=== PATIENT | female | born 1960 | race Caucasian/White ===

== ENCOUNTER → 2020-03-09 | Outpatient (CLI) | payer OTHER | LOC: LAB 03-02 07:59 | PROVIDERS: ATTEND Anesthesiology | DX: Z01.812 Encounter for preprocedural laboratory examination (principal); Z20.822 Contact with and (suspected) exposure to COVID-19 ==

== ENCOUNTER → 2020-08-31 | Outpatient (CLI) | payer OTHER ==
[~2020-08-31] MED LIST: AMITRIPTYLINE H25 M2 PO; CALCIUM CITRAT1 EAC7 PO; CAMBIA50 MG PO; DULCOLAX5 MG PO; METOCLOPRAMIDE 55 M1 PO; OMEPRAZOLE40 MG PO; ONDANSETRON HCL4 M3 PO; ROXICODONE15 MG PO; SUPER B COMPLE1 EAC2 PO; SYMBICORT160 MCG/4. INH; TIZANIDINE HCL4 M1 PO; TOPAMAX 100 MG100 MG PO; TRAZODONE HCL50 MG PO; VITAMIN C1000 MG PO; VITAMIN D310 MC1 PO; WELLBUTRIN SR150 MG PO
[2020-08-31 09:23] LABS: HEMATOCRIT 34.5 % (37.0-47.0); HEMOGLOBIN 11.7 gm/dL (12.0-15.0); MCH 33.8 pg (26.0-34.0); MCV 99.4 fL (80.0-100.0); RBC 3.47 mil/uL (4.20-5.00); RDW 14.3 % (10.5-14.5); WBC 8.7 thou/uL (4.0-11.0)
[2020-08-31 09:46] LABS: ALBUMIN 3.1 g/dL (3.4-5.0); CALCIUM 8.4 mg/dL (8.5-10.1); CREATININE 1.4 mg/dL (0.6-1.0); POTASSIUM 3.8 mmol/L (3.5-5.1); TOTAL BILIRUBIN 0.2 mg/dL (0.2-1.0); TOTAL PROTEIN 6.5 g/dL (6.4-8.2)
== END ==
LOC: PAC 08:52
PROVIDERS: ATTEND Surgery
DX: Z01.812 Encounter for preprocedural laboratory examination (principal); K43.9 Ventral hernia without obstruction or gangrene

== ENCOUNTER 2020-09-06 08:24 | Observation (INO) | payer OTHER ==
[~2020-09-06] VITALS: Ht 165.1 cm; Wt 103.4 kg
[2020-09-06] VITALS (7 sets, daily range): BP systolic 113–183; BP diastolic 67–98
--- NOTE | ~2020-09-06 | O ---
[facility] [place] [address] OPERATIVE REPORT Name: AWILDA GOLDBERG Room #: REG [facility] [place] M..#: [id number] Admission: 09/06/20 Attend Phys: Hola Rodriges MD Discharge: Date of : 62 Report #: [id number] THIS REPORT FOR: cc: Marshal Hein MD, Bryan W. MD Joseph, Sigi P. MD ~ cc: Dr. Marshal Hein DATE OF SERVICE: 09/06/2020 PREOPERATIVE DIAGNOSIS: Large ventral hernia. POSTOPERATIVE DIAGNOSIS: Large ventral hernia. OPERATIVE PROCEDURE DONE: 1. Laparoscopic extensive lysis of adhesions for about 60 minutes. 2. Laparoscopic repair of large ventral hernia with a Ventralight mesh, 15 x 25 cm. OPERATING SURGEON: Hola Rodriges MD NYLON OPERATOR: Boubacar. INDICATION FOR PROCEDURE: The patient is a 59-year-old female who presented with complaints of large ventral hernia that is partly reducible; however, she has been having chronic pain with this for the past few weeks and wished to have this repaired. The patient was advised laparoscopic repair of the same. The patient showed understanding and agreed to proceed. PROCEDURE IN DETAIL: After explaining to the patient in detail and informed consent was obtained. The patient was identified in the preoperative holding area, the patient was transferred to the operating room and was placed in supine position. Sequential compressive devices were placed for DVT prophylaxis. Preoperative antibiotics were given. After induction of anesthesia, the abdomen was prepped and draped in a sterile fashion. Through a left upper quadrant 1 cm incision and using Optiview technique, peritoneal cavity was entered and pneumoperitoneum was created. Thereafter, under direct vision, another 15 mm trocar was placed in the left flank and another 5 mm trocar was placed in the left lower quadrant region. On initial inspection, the patient was noted to have a moderate to large sized ventral hernia with adhesions containing omentum, transverse colon and small bowel within the hernia. I started to take down the adhesions initially using EnSeal. I continued to take down the small bowel that was within the hernia and most of it that was outside the hernia just adjacent to it that had to be taken down for subsequent repair. This was very tedious as a part of the small bowel was scarred on to the anterior abdominal wall. Continued lysis of adhesions using sharp and blunt dissection for about [address] [address] OPERATIVE REPORT Name: AWILDA GOLDBERG Room #: REG [facility] [place] M..#: [id number] Admission: 09/06/20 Attend Phys: Hola Rodriges MD Discharge: Date of : 62 Report #: [id number] minutes. The scarred area of the small bowel on the anterior abdominal wall I took down along with the small part of the fascia in that region to avoid any bowel injury. Once all the small bowel was taken down circumferentially, I then measured the hernial defect to be about 12 x 8 cm. Therefore, I chose a 25 x 15 cm Ventralight mesh and this was introduced into the abdominal cavity. The mesh was then anchored anteriorly and mesh was tacked circumferentially at 1 cm intervals using SecureStrap. I placed another inner layer of SecureStrap to hold the mesh in place and in addition I also placed 5 Mesick-Oliver sutures, 4 in the corners and 1 on the left side of the mesh repair. The mesh appeared to be in place without any tension. Absolute hemostasis was ensured. The 15 mm port site incision was closed with 0 Vicryl for the fascia. Skin was closed with 4-0 Monocryl for the incisions. Dermabond was applied. The patient was stable at the end of the procedure, the patient was awoken from anesthesia and was transferred to the recovery room in stable condition. Estimated blood loss was approximately 10 mL. CONDITION: The patient is stable. Fluids given per anesthesia notes. SPECIMEN SENT: None. COMPLICATIONS: None. By: [id number] Hola Rodriges MD /nt
--- NOTE | 2020-09-06 19:28 | NUR ---
Received from post op late in the pm. Pain is managed with medications, partial relief is noted. Pt is observation status, runs Sr on the tele. Endorsed to the night nurse.
--- NOTE | 2020-09-06 20:06 | NUR ---
WHEN GREETING PT, SON (MERY) REPORTED THAT PT TOOK OXYCODONE THAT SHE BROUGHT FROM HOME. PT IS NOT HAPPY ABOUT GIVING AWAY HER OXY PILLS. SON UNSURE IF THERE ARE MORE PILLS IN HER BAG.
--- NOTE | 2020-09-06 22:45 | NUR ---
NOTIFIED BY NURSING STAFF THAT PATIENT HAD TAKEN OWN NARCOTICS FROM HOME. ASSESSED PATIENT AND ASKED REGARDING TAKING HER OWN MEDS. PT DENIED INITIALLY BUT DID ADMIT TO TAKING "HALF OF ONE." INFORMED PT OF DANGERS OF SELF-MEDICATING AND ASKED HOW WE COULD HELP BETTER CONTROL HER PAIN. PT AGGRAVATED, NOT WANTING TO ANSWER QUESTIONS. INFORMED PT MYSELF AND TWO SECURITY GUARDS WOULD DO A SWEEP OF HER ROOM TO ENSURE NO ADDITIONAL MEDS WERE IN HER POSSESSION. PT AGAIN VERY AGGRAVATED AND STATING SHE WANTED TO LEAVE AMA. ROOM SEARCHED WITH THIS BRAND MARKETING MANAGER, TWO SECURITY GUARDS, AND RN PRESENT. PT'S BELONGINGS SEARCHED IN FRONT OF PATIENT ON BEDSIDE TABLE. CONFISCATED EPIPEN, NICOTINE PATCHES, AND TWO PAIRS OF SCISSORS. ALL OTHER BELONGINGS RETURNED THEY WERE FOUND.
[2020-09-07 01:00] VITALS: BP 123/63
--- NOTE | 2020-09-07 03:08 | NUR ---
ASSUMED PT CARE AT 1915 PT IS ALERT AND ORIENTED X4. PT HAS 4 LAP SITES WHICH ARE DRY WITH NO SIGN OF REDNESS TO THEM. PT C/O OF NAUSEA AND PAIN WHICH WAS MANAGED WITH PRN MEDS. PT IS NONCOMPLIANT AND REQUESTED FOR TELE TO BE TAKEN OFF. PT REFUSED TO GO FOR WALK. CABRERA IN PLACE. FALL PRECAUTION IN PLACE WITH CALL LIGHT WITHIN REACH. WILL CONTINUE TO MONITOR.
[2020-09-07 07:33] VITALS: BP 156/92
[2020-09-07 10:04] LABS: HEMATOCRIT 35.4 % (37.0-47.0); HEMOGLOBIN 11.9 gm/dL (12.0-15.0); MCH 33.7 pg (26.0-34.0); MCHC 33.7 g/dL (28.0-37.0); MCV 99.9 fL (80.0-100.0); RBC 3.54 mil/uL (4.20-5.00); RDW 14.5 % (10.5-14.5); WBC 14.5 thou/uL (4.0-11.0)
[2020-09-07 10:21] LABS: ALBUMIN 2.8 g/dL (3.4-5.0); CALCIUM 8.6 mg/dL (8.5-10.1); CREATININE 1.2 mg/dL (0.6-1.0); PHOSPHORUS 2.6 mg/dL (2.6-4.7); POTASSIUM 3.9 mmol/L (3.5-5.1)
--- NOTE | 2020-09-07 12:15 | NUR ---
PT ADMITTED RELATED TO LAP VENTRAL HERNIA REPAIR. CM REVIEWED CHART AND SPOKE WITH CARE TEAM. CM MET WITH PT AT BEDSIDE THIS DAY. PT APPEARED TO BE A&O X4. CM ROLE INTRODUCED. PT INDICATED SHE RESIDES IN A HOUSE WITH HER SPOUSE, BROTHR IN LAW, AND SISTER IN LAW. PT INDICATED THAT SHE USED A 4WW AND A CANE TO ASSIST WITH AMBULATION FITNESS SERVICES MANAGER. PT INDICATED SHE HAD BEEN INDEPENENT WITH AND ADLS FITNESS SERVICES MANAGER. PT INDIATED SHE HAD [facility] IN THE LAST YEAR. PT INDICATED SHE IS ON DISABILITY AND THAT SHE DOESN'T QUALIFY FOR MEDICAID HER SPOUSE WORKS. PT INDICATED SHE PLANS TO RETURN HOME ONCE MEDICALLY STABLE AND THAT HE SPOUSE WILL PROVIDE TRANSPORT. PT HAD CARE COMPLAINTS AND CM NOTIFIED CANCELING MACHINE OPERATOR WHO FOLLOWED UP WITH PT. NO DC NEEDS ANTICIPATED. CM FOLLOWING SHOULD ANY NEEDS ARISE.
[2020-09-07 15:16] VITALS: BP 114/80
[2020-09-07 19:23] VITALS: BP 142/90
--- NOTE | 2020-09-07 19:44 | NUR ---
Assumed pt care this am, vs stable. Refused to wear telemetry, as per om shift MD aware. POC followed, with no signs of ditress noted. Pt refused to ambulate and get off the bed, stated she is in constant chronic pain. Medications given as per emar. FC in place drainig urine. Pt transferred to [facility] report given.
--- NOTE | 2020-09-08 06:03 | NUR ---
Pt. rested quietly during the night when checked on during frequent rounds. Scheduled pain meds given with pain relief noted (see emar). C/o nausea and ivp zofran given with some relief. Bed alarm is on.
[2020-09-08 07:35] VITALS: BP 128/68
--- NOTE | 2020-09-08 11:52 | NUR ---
Pt sitting style in bed. States she is in level 9 pain. Gave morning meds and pain med. Pt resting peacefully. Removed alexis catheter. Lungs dimished. No BM today. Eating food brought in hospital from . Fall precautions in place bed in low position. Call light within reach.
[2020-09-08 12:57] VITALS: BP 128/68
== END 2020-09-08 13:30 | disposition home or self-care (01) ==
LOC: OR → 4W 17:41 → 4S 09-07 18:29
PROVIDERS: Surgery; ADMIT Surgery; ATTEND Surgery
DX: K43.9 Ventral hernia without obstruction or gangrene (principal); Z88.6 Allergy status to analgesic agent; Z88.8 Allergy status to other drugs, medicaments and biological substances; Z88.0 Allergy status to penicillin; Z88.1 Allergy status to other antibiotic agents; Z88.5 Allergy status to narcotic agent
CPT/HCPCS: 50010; 50101; 50386; 50455; 50555; 50558; 50981; 50984; 51687; 52265; 52266; 53311; 54022; 54118; 56462; 56525; 56526; 56533; 57092; 58574; 58587; 62110; 62900; 70005